=== PATIENT | female | born 1990 | race Caucasian/White ===

== ENCOUNTER 2019-10-04 22:08 | Emergency (ER) | payer OTHER ==
[~2019-10-04] VITALS: Ht 170.2 cm; Wt 102.1 kg
[2019-10-04 23:14] VITALS: BP 136/73
[2019-10-04 23:24] VITALS: BP 136/73
[2019-10-04] MEDS ORDERED: TORADOL IM STA (23:46)
--- NOTE | 2019-10-04 23:50 | ER.PDOC ---
General Chief Complaint: Extremities Stated Complaint: R FOOT INJURY Time seen by MD: 23:48 Source: patient Exam Limitations: no limitations History of Present Illness Initial Comments Right foot pain after hitting the top of her foot against a chair. Onset: just prior to arrival Where: home Modifying Factors: pain on movement Past Medical History Medical History: asthma Surgical History: cholecystectomy, tonsillectomy, tubal Social History Alcohol Use: none Drug Use: none Review of Systems Constitutional: no symptoms reported Respiratory: no symptoms reported Cardiovascular: no symptoms reported Gastrointestinal: no symptoms reported Musculoskeletal: see HPI All Other Systems: Reviewed and Negative Physical Exam General Appearance: Alert, No Apparent Distress Foot: see diagram, tenderness 1 - tenderness, no swelling or deformity Ankle: nml inspection, non-tender, nml ROM, no joint swelling, skin intact Gait: limited by pain Neuro: sensation nml, motor nml Vascular: no vascular compromise Tendons: tendon function nml Leg/Knee/Thigh: uninjured above ankle Head/ENT: nml inspection, pharynx nml Neck/Back: nml inspection, non-tender Resp/CVS: no resp distress Abdomen: non-tender, no organomegaly Results/Orders Results/Orders Orders - SALENA SAMUELS MD Xr Foot Rt (10/04/19 23:26) Ketorolac Tromethamine (Toradol) (10/04/19 23:46) Vital Signs Date Time Temp Pulse Resp B/P (MAP) Pulse Ox O2 Delivery O2 Flow Rate FiO2 10/04/19 23:24 98.5 83 18 136/73 (94) 97 Room Air 10/04/19 23:14 98.5 83 18 97 10/04/19 23:14 98.5 83 18 10/04/19 23:14 98.5 83 18 136/73 (94) 97 Room Air EKG/XRAY/CT/US XRAY Comments: No acute osseous abnormality of right foot Departure Time of Disposition: 00:03 Disposition: 01 HOME, SELF-CARE Impression: Primary Impression: Injury of foot, right Condition: Stable Referrals: PCP,UNKNOWN (PCP) PRIMARY CARE PROVIDER Additional Instructions: Ice Ibuprofen F/U with your PCP in 1 week Return to ED if worsening pain or concerns. Duration or Time Spent with Pa: 20 min Problem Qualifiers Primary Impression: Injury of foot, right Encounter type: initial encounter Qualified Codes: S99.921A - Unspecified injury of right foot, initial encounter ABRIL,SALENA Becerril MD Oct 04, 2019 23:50
[2019-10-05] MEDS ORDERED: TORADOL ONE (00:02)
--- NOTE | 2019-10-05 00:15 | DIREP ---
PROCEDURE:XRAY FOOT MIN 3 VWS-RT COMPARISON:None. INDICATIONS:pain/injury FINDINGS: BONES:No acute fractures identified. There is hardware involving the calcaneus, and hardware within the navicular. Hardware intact. JOINTS:Alignment is satisfactory. SOFT TISSUES:Normal. OTHER:No additional findings. CONCLUSION:Postsurgical changes. No acute findings. Dictated by: aTnk Reno MD on 10/05/2019 at 00:11 AM
== END 2019-10-05 00:26 | disposition home or self-care (01) ==
LOC: ER 22:08
DX: S99.921A Unspecified injury of right foot, initial encounter (principal); J45.909 Unspecified asthma, uncomplicated; Z90.49 Acquired absence of other specified parts of digestive tract; W22.03XA Walked into furniture, initial encounter; Y93.89 Activity, other specified; Y92.098 Other place in other non-institutional residence as the place of occurrence of the external cause; Y99.8 Other external cause status
CPT/HCPCS: 73630; 96372; 99283; J1885

== ENCOUNTER 2019-11-15 13:46 | Emergency (ER) | payer OTHER ==
[~2019-11-15] VITALS: Ht 170.2 cm; Wt 101.2 kg
[2019-11-15 14:02] VITALS: BP 149/63
[2019-11-15 14:05] VITALS: BP 149/63
--- NOTE | 2019-11-15 14:06 | NUR ---
ARRIVAL PATIENT ARRIVED TO [facility], C/O OF RIGHT ARM INJURY 4 DAYS AGO, PATIENT STATES SHE FELL THROUGH A BED AND ATTEMPTED TO CATCH HERSELF, ATTEMPTED TO TREAT HERSELF AT HOME WITH MINIMAL RELIEF, CAME TO THE ED FOR EVAL.
[2019-11-15] MEDS ORDERED: TORADOL IM STA (14:07)
[2019-11-15] MEDS ORDERED: TORADOL ONE (14:09)
--- NOTE | 2019-11-15 14:11 | ER.PDOC ---
General Chief Complaint: Extremities Stated Complaint: RIGHT ARM INJURY Time seen by MD: 14:10 Source: patient Exam Limitations: no limitations History of Present Illness Initial Comments Right arm and hand pain S/P fall 4 days ago. She denied hitting her head. Severity: moderate Modifying Factors: pain on movement Allergies: Coded Allergies: No Known Allergies (Unverified , 11/15/19) Past Medical History Medical History: asthma, other Surgical History: no surgical history Social History Alcohol Use: none Drug Use: none Review of Systems Constitutional: no symptoms reported EENTM: no symptoms reported Respiratory: no symptoms reported Cardiovascular: no symptoms reported Gastrointestinal: no symptoms reported Musculoskeletal: see HPI All Other Systems: Reviewed and Negative Physical Exam General Appearance: Alert, No Apparent Distress Hand: tenderness (right) Wrist: nml inspection, non-tender, nml ROM Forearm/Elbow: tenderness (right forearm, no deformity or swelling.) Arm/Shoulder: nml inspection, non-tender, nml ROM Neuro/Vasc/Tendon: sensation nml, motor nml, no vascular compromise, tendon function nml Skin: warm/dry Head/ENT: nml inspection, pharynx nml Neck/Back: nml inspection, non-tender Respiratory: chest non-tender, breath sounds nml CVS: heart sounds normal Abdomen: non-tender, no organomegaly Results/Orders Results/Orders Orders - SALENA SAMUELS MD Xr Forearm Rt (11/15/19 14:07) Xr Hand Rt (11/15/19 14:07) Ketorolac Tromethamine (Toradol) (11/15/19 14:07) Ketorolac Tromethamine (Toradol) (11/15/19 14:09) Vital Signs Date Time Temp Pulse Resp B/P (MAP) Pulse Ox O2 Delivery O2 Flow Rate FiO2 11/15/19 14:05 99.0 76 18 149/63 (91) 95 Room Air 11/15/19 14:02 99.0 76 18 11/15/19 14:02 99.0 76 18 149/63 (91) 95 Room Air 11/15/19 14:02 99.0 76 18 95 Administered Medications Medications (Trade) Dose Ordered Sig/Salvatore Route PRN Reason Start Time Stop Time Status Last Admin Dose Admin Ketorolac Tromethamine (Toradol) 60 mg STAT STAT IM 11/15/19 14:07 11/15/19 14:10 DC 11/15/19 14:13 60 MG EKG/XRAY/CT/US XRAY Comments: Normal right forearm and hand ER DEPART Departure Time of Disposition: 15:11 Disposition: 01 HOME, SELF-CARE Impression: Primary Impression: Right forearm pain Additional Impressions: Hand pain, right Injury, forearm Condition: Stable Referrals: JAKOB MONTANA MD (PCP) PRIMARY CARE PROVIDER Additional Instructions: Ibuprofen Tramadol F/U with your PCP in 1 week Return to ED if worsening or concerns Duration or Time Spent with Pa: 20 min Problem Qualifiers Additional Impressions: Injury, forearm Encounter type: initial encounter Laterality: right Qualified Codes: S59.911A - Unspecified injury of right forearm, initial encounter SALENA SAMUELS MD Nov 15, 2019 14:11
--- NOTE | 2019-11-15 14:29 | DIREP ---
PROCEDURE:XRAY FOREARM 2 VWS-RT COMPARISON:None. INDICATIONS:pain/injury FINDINGS: BONES:Normal. JOINTS:Normal. SOFT TISSUES:Normal. OTHER:No additional findings. CONCLUSION:Normal examination. Dictated by: Edu Delatorre M.D. on 11/15/2019 at 02:27 PM
--- NOTE | 2019-11-15 14:30 | DIREP ---
PROCEDURE:XRAY HAND MIN 3 VW-RT COMPARISON:None. INDICATIONS:pain/injury FINDINGS: BONES:Normal. JOINTS:Normal. SOFT TISSUES:Normal. OTHER:No additional findings. CONCLUSION:Normal examination. Dictated by: Edu Delatorre M.D. on 11/15/2019 at 02:28 PM
[2019-11-15 15:16] VITALS: BP 111/62
== END 2019-11-15 15:19 | disposition home or self-care (01) ==
LOC: ER 13:46
DX: S59.911A Unspecified injury of right forearm, initial encounter (principal); J45.909 Unspecified asthma, uncomplicated; Z79.1 Long term (current) use of non-steroidal anti-inflammatories (NSAID); X58.XXXA Exposure to other specified factors, initial encounter; Y93.89 Activity, other specified; Y92.89 Other specified places as the place of occurrence of the external cause; Y99.8 Other external cause status
CPT/HCPCS: 73090; 73130; 96372; 99284; J1885

== ENCOUNTER 2020-01-18 17:08 | Emergency (ER) | payer OTHER ==
[~2020-01-18] VITALS: Ht 170.2 cm; Wt 101.2 kg
[2020-01-18 17:29] VITALS: BP 142/96
--- NOTE | 2020-01-18 18:10 | DIREP ---
PROCEDURE:CHEST 2 VIEWS COMPARISON:None. INDICATIONS:Shortness of breath FINDINGS: LUNGS/PLEURA:No significant pulmonary parenchymal abnormalities. No effusions. VASCULATURE:Normal. Unremarkable pulmonary vasculature. CARDIAC:Normal. No cardiac silhouette abnormality or cardiomegaly. MEDIASTINUM:Normal. No visible mass or adenopathy. BONES:Normal. No fracture or visible bony lesion. OTHER:Negative. CONCLUSION:No acute cardiopulmonary abnormality. Dictated by: Ten Rey MD. on 01/18/2020 at 06:08 PM
[2020-01-18] MEDS ORDERED: SOLU-MEDROL IV STA (18:46)
[2020-01-18] MEDS ORDERED: SOLU-MEDROL ONE (18:47)
--- NOTE | 2020-01-18 18:47 | ER.PDOC ---
General Chief Complaint: Dyspnea/Respdistress Stated Complaint: SOB/COUGH/FEVER/DIARRHEA/HEADACHE Time seen by MD: 18:41 Source: patient Exam Limitations: no limitations History of Present Illness Initial Comments Fever, cough, runny nose, SOB and headache for 4 days. Timing/Duration: gradual Severity: moderate Associated Symptoms: runny nose, sore throat, cough, mild SOB Allergies: Coded Allergies: No Known Allergies (Unverified , 01/18/20) Constitutional: no symptoms reported EENTM: see HPI Respiratory: see HPI Cardiovascular: no symptoms reported Gastrointestinal: no symptoms reported Genitourinary: no symptoms reported All Other Systems: Reviewed and Negative Past Medical History Medical History: asthma, other Surgical History: no surgical history Social History Alcohol Use: none Drug Use: none Physical Exam General Appearance: alert, no distress Eye: eyes nml inspection Nose: rhinorrhea Throat: pharynx nml, airway nml Neck: nml inspection, supple Respiratory: no resp.distress, breath sounds nml Abdomen: non-tender, no organomegaly CVS: reg rate & rhythm, heart sounds nml Extremities: non-tender, nml ROM, no pedal edema NEURO/PSYCH: oriented x 3, CN's nml as tested, motor nml, sensation nml, mood/affect nml Results/Orders Results/Orders Orders - SALENA SAMUELS MD Strep Screen (01/18/20 17:49) Influenza A&B (01/18/20 17:49) Covid19 Antigen Irene Macie (01/18/20 17:49) Xr Chest 2v (01/18/20 17:49) Vital Signs Date Time Temp Pulse Resp B/P (MAP) Pulse Ox O2 Delivery O2 Flow Rate FiO2 01/18/20 18:18 98.9 01/18/20 17:29 99.3 96 20 01/18/20 17:29 99.3 96 20 142/96 (111) 97 Room Air 01/18/20 17:29 99.3 96 20 97 Laboratory Tests Test 01/18/20 17:22 Influenza Type A Antigen NEGATIVE (NEG) Influenza B Immunofluorescence NEGATIVE (NEG) SARS-CoV-2 Antigen (Rapid) NEGATIVE (NEGATIVE) Group A Streptococcus Screen NEGATIVE (NEGATIVE) EKG/XRAY/CT/US XRAY: chest (No active disease) ER DEPART Departure Time of Disposition: 18:45 Disposition: 01 HOME, SELF-CARE Impression: Primary Impression: Bronchitis Condition: Stable Referrals: JAKOB MONTANA MD (PCP) PRIMARY CARE PROVIDER Additional Instructions: Medrol dose pack Z pack Mucinex DM OTC as directed F/U with your PCP in 1 week Return to ED if worsening or concerns Duration or Time Spent with Pa: 20 min SALENA SAMUELS MD Jan 18, 2020 18:47
[2020-01-18 18:52] VITALS: BP 138/69
== END 2020-01-18 18:55 | disposition home or self-care (01) ==
LOC: ER 17:08
DX: J40 Bronchitis, not specified as acute or chronic (principal); Z20.828 Contact with and (suspected) exposure to other viral communicable diseases
CPT/HCPCS: 36415; 71046; 87070; 87426; 87804 ×2; 87880; 96374; 99284; J2930